=== PATIENT | female | born 1975 | race Caucasian/White ===

== ENCOUNTER 2016-12-20 15:44 | Emergency (ER) | payer OTHER ==
[2016-12-20 16:19] LABS: BASOPHIL 0.4 % (0-2); EOSINOPHIL 1.8 % (0-5); HCT 42.2 % (37.0-47.0); HGB 14.2 g/dl (12.5-16.0); LYMPHOCYTE 28.5 % (15-48); MCH 30.1 pg (25.0-31.0); MCHC 33.6 g/dL (32.0-36.0); MCV 89.4 fL (78.0-100.0); MONOCYTE 10.8 % (0-12); MPV 9.5 fL (6.0-9.5); NEUTROPHIL 58.5 % (41-80); PLT 399 K/uL (150-400); RBC 4.72 M/uL (4.20-5.40); RDW 12.8 % (11.5-14.0); WBC 8.5 K/uL (4.0-10.5)
[2016-12-20 16:20] LABS: BILIRUBIN NEGATIVE (NEGATIVE); BLOOD 1+ Ery/uL (NEGATIVE); CLARITY CLEAR (CLEAR); COLOR YELLOW (YELLOW); GLUCOSE (U) NORMAL (NORMAL); KETONE (U) NEGATIVE (NEGATIVE); LEUKOCYTES TRACE Leu/uL (NEGATIVE); NITRITE NEGATIVE (NEGATIVE); PROTEIN NEGATIVE (NEGATIVE); SPECIFIC GRAVITY >=1.030 (1.001-1.030); UROBILINOGEN 0.2 mg/dL (0.2-1.0); pH 5.5 (5.0-9.0)
[2016-12-20 16:27] LABS: BACTERIA 1+
[2016-12-20 16:51] LABS: ALBUMIN 4.2 g/dL (3.5-5.0); BILIRUBIN - TOTAL 0.2 mg/dL (0.1-1.0); CREATININE 0.7 mg/dL (0.5-1.0); GLOBULIN (CALCULATION) 3.4 g/dL (2.2-4.2); TOTAL PROTEIN 7.6 g/dL (6.4-8.3)
== END 2016-12-20 17:29 | disposition home or self-care (01) ==
LOC: FER 15:44
PROVIDERS: Nurse Practitioner
DX: N39.0 Urinary tract infection, site not specified (principal); N83.201 Unspecified ovarian cyst, right side; K57.90 Diverticulosis of intestine, part unspecified, without perforation or abscess without bleeding
CPT/HCPCS: 36415; 80053; 81001; 85025; 87339

== ENCOUNTER 2017-03-02 16:12 | Emergency (ER) | payer OTHER ==
[2017-03-02 17:12] LABS: BILIRUBIN NEGATIVE (NEGATIVE); BLOOD 1+ Ery/uL (NEGATIVE); CLARITY CLEAR (CLEAR); COLOR YELLOW (YELLOW); GLUCOSE (U) NORMAL (NORMAL); KETONE (U) TRACE mg/dL (NEGATIVE); LEUKOCYTES TRACE Leu/uL (NEGATIVE); NITRITE NEGATIVE (NEGATIVE); PROTEIN NEGATIVE (NEGATIVE); SPECIFIC GRAVITY 1.025 (1.001-1.030); UROBILINOGEN 0.2 mg/dL (0.2-1.0)
[2017-03-02 17:18] LABS: BACTERIA TRACE; MUCOUS TRACE; URINARY RBC RARE
[2017-03-02 17:22] LABS: INR 0.95 (0.9-1.2); PROTHROMBIN TIME 12.3 SECONDS (11.7-14.0); PTT 27.5 SECONDS (23.2-31.4)
[2017-03-02 17:28] LABS: BASOPHIL 0.4 % (0-2); HCT 40.9 % (37.0-47.0); HGB 13.9 g/dl (12.5-16.0); LYMPHOCYTE 24.9 % (15-48); MCH 30.7 pg (25.0-31.0); MCV 90.3 fL (78.0-100.0); MONOCYTE 9.3 % (0-12); MPV 9.3 fL (6.0-9.5); NEUTROPHIL 63.4 % (41-80); PLT 377 K/uL (150-400); RBC 4.53 M/uL (4.20-5.40); RDW 12.9 % (11.5-14.0); WBC 9.3 K/uL (4.0-10.5)
[2017-03-02 17:42] LABS: ALBUMIN 4.2 g/dL (3.5-5.0); BILIRUBIN - TOTAL 0.2 mg/dL (0.1-1.0); CREATININE 0.8 mg/dL (0.5-1.0); GLOBULIN (CALCULATION) 3.2 g/dL (2.2-4.2); POTASSIUM 3.8 mmol/L (3.5-5.1); TOTAL PROTEIN 7.4 g/dL (6.4-8.3)
== END 2017-03-02 20:05 | disposition home or self-care (01) ==
LOC: FER 16:12
PROVIDERS: Emergency Medicine
DX: K52.9 Noninfective gastroenteritis and colitis, unspecified (principal); K29.70 Gastritis, unspecified, without bleeding; Z79.899 Other long term (current) drug therapy
CPT/HCPCS: 36415; 80053; 81001; 83690; 84484; 85025; 85610; 85730; C9113